=== PATIENT | female | born 1965 | race Caucasian/White ===

== ENCOUNTER 2017-09-11 10:19 | Outpatient (CLI) | payer OTHER ==
[~2017-09-11 10:19] MED LIST: SYNTHROID50 MCG
== END 2017-09-11 10:29 | disposition home or self-care (01) ==
LOC: SONOGRAMA 10:19
DX: E04.2 Nontoxic multinodular goiter (principal)

== ENCOUNTER 2017-12-07 16:15 | Emergency (ER) | payer OTHER ==
[~2017-12-07] VITALS: Ht 152.4 cm; Wt 89.4 kg
[2017-12-07] MEDS ORDERED: GLIMEPIRIDE4 MG PO (16:36)
== END 2017-12-07 20:50 | disposition home or self-care (01) ==
LOC: ER 16:15
DX: M54.5 Low back pain (principal); M79.662 Pain in left lower leg; M79.661 Pain in right lower leg; N39.0 Urinary tract infection, site not specified

== ENCOUNTER 2018-12-22 04:28 | Emergency (ER) | payer OTHER ==
[~2018-12-22] VITALS: Ht 165.1 cm; Wt 81.6 kg
[~2018-12-22 04:28] MED LIST changes: +GLIMEPIRIDE4 MG PO
[2018-12-22] MEDS ORDERED: PROTONIX20 MG PO (07:01)
== END 2018-12-22 07:09 | disposition home or self-care (01) ==
LOC: ER 04:28
DX: K21.0 Gastro-esophageal reflux disease with esophagitis (principal); R07.89 Other chest pain

== ENCOUNTER → 2019-04-10 | Emergency (ER) | payer OTHER ==
[~2019-04-10] VITALS: Ht 165.1 cm; Wt 84.8 kg
[~2019-04-10] MED LIST changes: +PROTONIX20 MG PO
== END | disposition left against medical advice (07) ==
LOC: ER 21:10
DX: R07.89 Other chest pain (principal)

== ENCOUNTER 2023-05-16 13:54 | Emergency (ER) | payer OTHER ==
[~2023-05-16] VITALS: Ht 160 cm; Wt 68.0 kg
[2023-05-16 15:16] LABS: HEMATOCRIT 46.2 % (36.0-45.00); HEMOGLOBIN 14.9 g/dL (12.0-15.00); MEAN CELL VOLUME 87.3 fL (80.00-100.00); MEAN CORPUSCULAR HEMOGLOBIN 28.1 pg (27.00-32.0); MEAN CORPUSCULAR HGB CONC 32.2 g/dl (32.0-36.0); PLATELET COUNT 393 K/uL (150-450); RED BLOOD COUNT 5.29 M/uL (4.00-6.00); RED CELL DISTRIBUTION WIDTH 13.7 % (11.5-14.5)
[2023-05-16 15:35] LABS: CALCIUM 9.7 mg/dL (8.5-10.1); CREATININE SERUM 0.63 mg/dL (0.55-1.02); GFR 97.06; POTASSIUM 3.89 mEq/L (3.5-5.1)
== END 2023-05-16 18:53 | disposition home or self-care (01) ==
LOC: ER 13:54
PROVIDERS: General Practice
DX: R10.32 Left lower quadrant pain (principal); Z88.6 Allergy status to analgesic agent; Z88.8 Allergy status to other drugs, medicaments and biological substances

== ENCOUNTER 2024-11-05 18:15 | Emergency (ER) | payer OTHER ==
[~2024-11-05] VITALS: Ht 162.6 cm; Wt 68.0 kg
== END 2024-11-05 21:53 | disposition home or self-care (01) ==
LOC: ER 18:18
DX: J02.9 Acute pharyngitis, unspecified (principal); Z88.1 Allergy status to other antibiotic agents; Z88.6 Allergy status to analgesic agent